=== PATIENT | female | born 1955 | race Caucasian/White ===

== ENCOUNTER 2018-10-15 05:57 | Inpatient (IN) | payer MEDICAID ==
[2018-10-15] MEDS ORDERED: Acetaminophen 500 MG Tab PO ONE (06:15)
[2018-10-15] MEDS ORDERED: Gabapentin 300 MG Cap PO ONE (06:15)
[2018-10-15] MEDS ORDERED: Bupivacaine 0.5%/EPINEPHrine 1:200,000 50 ML MDV ONE (06:42)
[2018-10-15] MEDS ORDERED: cefOXitin 2 GM Vial ONE (07:08)
[2018-10-15] MEDS ORDERED: Dextrose 5%-Lactated Ringers 1,000 ML IV SCH (07:15)
[2018-10-15] MEDS ORDERED: Rocuronium 50 MG/5 ML Vial ONE (07:28)
[2018-10-15] MEDS ORDERED: Dexamethasone 4 MG/ML SDV ONE (07:28)
[2018-10-15] MEDS ORDERED: Glycopyrrolate 0.2 MG/ML 5 ML MDV ONE (07:28)
[2018-10-15] MEDS ORDERED: Neostigmine Methylsulfate 1 MG/ML 5 ML Syringe ONE (07:28)
[2018-10-15] MEDS ORDERED: Ondansetron 4 MG/2 ML SDV ONE (07:28)
[2018-10-15] MEDS ORDERED: Succinylcholine 200 MG/10 ML MDV ONE (07:28)
[2018-10-15] MEDS ORDERED: Propofol 200 MG/20 ML SDV ONE (07:28)
[2018-10-15] MEDS ORDERED: Lidocaine 2% 100 MG/5 ML Syringe IVPUSH SCH (08:00)
[2018-10-15] MEDS ORDERED: Ketamine 50 MG in Sodium Chloride 0.9% 49.5 ML IV SCH (08:00)
[2018-10-15] MEDS ORDERED: cefOXitin 2 GM in Sodium Chloride 0.9% 50 ML IV ONE (08:00)
[2018-10-15] MEDS ORDERED: Ketamine 500 MG/5 ML MDV IV SCH (08:00)
[2018-10-15] MEDS ORDERED: Tranexamic Acid 1,000 MG in Sodium Chloride 0.9% 50 ML IV ONE ×2 (09:30→13:00)
[2018-10-15] MEDS ORDERED: hydrOXYzine HCl 100 MG/2 ML SDV IM ONE (09:52)
[2018-10-15] MEDS ORDERED: HYDROmorphone/Normal Saline 15 MG/30 ML PCA IV PRN (10:34)
[2018-10-15] MEDS ORDERED: Naloxone 0.4 MG/ML SDV IVPUSH PRN (10:34)
[2018-10-15] MEDS ORDERED: Naloxone 0.4 MG/ML SDV IV PRN (10:36)
[2018-10-15] MEDS ORDERED: Labetalol 20 MG/4 ML Syringe IVPUSH PRN (10:49)
[2018-10-15] MEDS ORDERED: hydrOXYzine HCl 100 MG/2 ML SDV IM PRN (10:49)
[2018-10-15] MEDS ORDERED: Metoclopramide 10 MG/2 ML SDV IVPUSH PRN (10:49)
[2018-10-15] MEDS ORDERED: Ondansetron 4 MG/2 ML SDV IVPUSH PRN (10:49)
[2018-10-15] MEDS ORDERED: HYDROmorphone 1 MG/ML Syringe IV PRN (10:49)
[2018-10-15] MEDS ORDERED: diphenhydrAMINE 50 MG/ML SDV IVPUSH PRN (10:49)
[2018-10-15] MEDS ORDERED: HYDROmorphone 0.5 MG/0.5 ML Syringe IVPUSH PRN (10:49)
[2018-10-15] MEDS: Lidocaine 0.4%/D5W 2 GM/500 ML BAG IV SCH (11:27)
[2018-10-15] MEDS: Scopolamine 1.5 MG Transdermal Patch TOP SCH ×2 (12:10→14:03)
[2018-10-15] MEDS ORDERED: Pantoprazole 40 MG Vial IVPUSH SCH (14:00)
[2018-10-15] MEDS: Gabapentin 250 MG/5 ML Solution ML 470 ML Bottle PO SCH ×2 (14:13→20:36)
[2018-10-15] MEDS: cefOXitin 2 GM in Sodium Chloride 0.9% 50 ML IV SCH ×2 (14:14→20:36)
[2018-10-15] MEDS ORDERED: MVI, Adult with Vitamin K 10 ML, Thiamine 200 MG, Chromium/Copper/Mang/Selen/Zn 1 ML in... IV SCH ×4 (16:00)
[2018-10-15] MEDS: URSODIOL 250 MG PO SCH (20:35)
[2018-10-15] MEDS: Heparin Sodium 5,000 Units/ML Vial SUBCUT SCH (20:35)
[2018-10-15] MEDS: Carvedilol 6.25 MG Tab PO SCH (20:36)
[2018-10-15] MEDS: Dextrose 5%-Lactated Ringers 1,000 ML IV SCH (22:38)
[2018-10-16] MEDS: cefOXitin 2 GM in Sodium Chloride 0.9% 50 ML IV SCH ×2 (02:26→07:23)
[2018-10-16] MEDS ORDERED: Iopamidol 612 MG/ML 50 ML SDV PO STA (03:28)
[2018-10-16] MEDS: Dextrose 5%-Lactated Ringers 1,000 ML IV SCH (04:26)
[2018-10-16] MEDS ORDERED: Ondansetron 4 MG Tab.DIS PO PRN (07:21)
[2018-10-16] MEDS: Lidocaine 0.4%/D5W 2 GM/500 ML BAG IV SCH (07:22)
[2018-10-16] MEDS: Heparin Sodium 5,000 Units/ML Vial SUBCUT SCH ×2 (07:23→20:23)
[2018-10-16] MEDS ORDERED: Dextrose 5%-Lactated Ringers 1,000 ML IV SCH (07:30)
[2018-10-16] MEDS ORDERED: Betamethasone Dipropionate/Clotrimazole 0.05-1% Crm 15 GM Tube TOP PRN (07:47)
--- NOTE | 2018-10-16 07:49 | CRLCR ---
Indication: Rosario-en-Y gastric bypass surgery revision Technique: Abdomen modified upper GI 2 views Comparison: None Findings/Impression: Oral contrast is intraluminal, no sign of contrast extravasation. Visualized bowel is normal in caliber. No signs of obstruction. Drainage catheter is in the left upper quadrant. No abnormality evident. Dictated by Nazario Oconnell MD @ Oct 16 2018 7:42AM Signed by Dr. Nazario Oconnell @ Oct 16 2018 7:47AM
[2018-10-16] MEDS: Carvedilol 6.25 MG Tab PO SCH ×2 (08:28→20:23)
[2018-10-16] MEDS: Gabapentin 250 MG/5 ML Solution ML 470 ML Bottle PO SCH ×3 (08:50→20:22)
[2018-10-16] MEDS: Citalopram 20 MG Tab PO SCH (08:51)
[2018-10-16] MEDS: Cetirizine 10 MG Tab PO SCH (08:51)
[2018-10-16] MEDS: Furosemide 20 MG Tab PO SCH (08:51)
[2018-10-16] MEDS: SCOPOLAMINE PATCH CHECK TOP SCH (08:52)
[2018-10-16] MEDS: Potassium Chloride 10 MEQ Cap.ER PO SCH (08:52)
[2018-10-16] MEDS: URSODIOL 250 MG PO SCH ×2 (08:54→20:23)
[2018-10-16] MEDS ORDERED: URSODIOL PO SCH (09:00)
[2018-10-16] MEDS ORDERED: Non-Formulary Medication 1 Each (Metronidazole [Metronidazole 0.75% Cream] 1 APPLIC) TOP SCH (09:00)
--- NOTE | 2018-10-16 09:06 | PN ---
DATE OF SERVICE: 10/16/2018 SUBJECTIVE: Kinjal is alert and orientated. She is sitting up in bed. States her pain is controlled. Vital signs have been stable. She has a Reynolds catheter in, and her output has been 1675, ANNELIESE drain put out 120 mL of a light red drainage. REVIEW OF SYSTEMS: Remainder of review of systems is negative for any pertinent positives and negatives. OBJECTIVE: GENERAL: Kinjal Beatty is a pleasant 63-year-old female. She is alert and orientated. VITAL SIGNS: TPR 97.3, 81, 16. blood pressure 127/70. HEENT: Negative. NECK: Supple. HEART: Regular rate and rhythm. LUNGS: Clear. ABDOMEN: Dressings dry and intact. Abdominal binder is on. ANNELIESE drain intact. Reynolds catheter is draining a clear archana urine. EXTREMITIES: Without peripheral edema. ASSESSMENT: 1. Exploratory laparotomy with lysis of adhesions. a. Revision of the Rosario-en-Y gastric bypass including closure of the gastrogastric fistula. b. Takedown of the gastrostomy. c. Wedge and needle liver biopsy for weight regain, status post Rosario-en-Y gastric bypass surgery, gastrogastric fistula, enlargement of pouch and gastrojejunostomy, status post gastrostomy. 2. History of primary biliary cirrhosis. Date of surgery 10/15/2018. Surgeon, Solis Emerson MD. PLAN: 1. Discontinue Reynolds catheter. 2. Decrease IV D5 LR to 100 mL per hour. 3. Step 3 gastric bypass diet. 4. Discontinue OTOLARYNGOLOGY REP continuous pulse ox. 5. Percocet 5/325 mg one q.6 hours p.r.n. pain. 6. Dressing off may shower. 7. Zofran 4 mg ODT p.r.n. nausea every 4 hours. 8. Good pulmonary toilet. 9. We will evaluate p.r.n. or in a.m. HOME MEDICATIONS: 1. Started betamethasone, clotrimazole 1 applicator topical b.i.d. p.r.n. 2. Zyrtec 10 mg p.o. daily. 3. Citalopram, Celexa 20 mg p.o. daily. 4. Flonase 2 sprays in each nostril daily. 5. Lasix 20 mg daily. 6. Metronidazole 1 applicator topical b.i.d. 7. Potassium chloride 20 mEq p.o. daily. 8. Ramipril (Altace 2.5 mg p.o. daily). 9. Betapace 80 mg p.o. b.i.d. 10.Ursodiol 500 mg p.o. q.p.m. and Ursodiol mg p.o. q.a.m. Caprice Vasquez PA-C /[id number]
[2018-10-16] MEDS: Sotalol 80 MG Tab PO SCH ×2 (09:08→20:23)
[2018-10-16] MEDS: Fluticasone Propionate Nasal Spray 16 GM Bottle NAS SCH (10:45)
[2018-10-16] MEDS: Acetaminophen/oxyCODONE 325-5 MG Tab PO PRN ×2 (10:49→15:20)
[2018-10-16] MEDS ORDERED: Non-Formulary Medication 1 Each (Ursodiol [Ursodiol] 500 MG) PO SCH (17:00)
[2018-10-17] MEDS: Acetaminophen/oxyCODONE 325-5 MG Tab PO PRN ×2 (02:37→09:43)
[2018-10-17] MEDS: Heparin Sodium 5,000 Units/ML Vial SUBCUT SCH (07:38)
[2018-10-17 08:54] VITALS: BP 127/59; PULSE 79
[2018-10-17] MEDS: Fluticasone Propionate Nasal Spray 16 GM Bottle NAS SCH (08:54)
[2018-10-17] MEDS: SCOPOLAMINE PATCH CHECK TOP SCH (08:56)
[2018-10-17] MEDS: Sotalol 80 MG Tab PO SCH (08:57)
[2018-10-17] MEDS: Cetirizine 10 MG Tab PO SCH (08:58)
[2018-10-17] MEDS: Carvedilol 6.25 MG Tab PO SCH (08:58)
[2018-10-17] MEDS: Potassium Chloride 10 MEQ Cap.ER PO SCH (08:58)
[2018-10-17] MEDS: Furosemide 20 MG Tab PO SCH (08:58)
[2018-10-17] MEDS: Citalopram 20 MG Tab PO SCH (08:58)
[2018-10-17] MEDS ORDERED: Cyanocobalamin (Vitamin B12) 1,000 MCG/ML SDV IM ONE (09:00)
[2018-10-17] MEDS: URSODIOL 250 MG PO SCH (09:26)
[2018-10-17] MEDS: Gabapentin 250 MG/5 ML Solution ML 470 ML Bottle PO SCH (09:27)
[2018-10-17] MEDS ORDERED: Meperidine PF 100 MG/ML Syringe IM ONE (09:49)
[2018-10-17] MEDS ORDERED: Magnesium Hydroxide 400 MG/5 ML Susp 30 ML Cup PO ONE (10:00)
[2018-10-17] MEDS ORDERED: hydrOXYzine HCl 100 MG/2 ML SDV IM ONE (10:00)
--- NOTE | 2018-10-17 12:26 | DISCH ---
ADMISSION DIAGNOSES: Morbid obesity, BMI 46; status post Rosario-en-Y gastric bypass surgery; weight regain; vitamin D deficiency; unspecified surgical malabsorption; liver enlargement; cardiomyopathy; sensorineural hearing loss bilaterally; osteoarthritis, left knee; paroxysmal atrial fibrillation; cardiac pacemaker in situ; and anterolisthesis. DISCHARGE DIAGNOSES: 1. Exploratory laparotomy with lysis of adhesions. a. Revision of the Rosario-en-Y gastric bypass surgery including closure of the gastrogastric fistula. b. Takedown of gastrostomy. c. Wedge and needle liver biopsy for enlarged liver. 2. History of biliary cirrhosis. 3. Weight regain, status post Rosario-en-Y gastric bypass surgery. 4. Gastrogastric fistula. 5. Enlargement of pouch and gastrojejunostomy. HISTORY: Kinjal Beatty is a pleasant 63-year-old female with history of Rosario-en-Y and weight regain. After preoperative evaluation and discussion of possible risks and possible complications, she wished to proceed with surgical procedure. HOSPITAL COURSE: Kinjal had her surgery on 10/15/2018. She had no operative complication. On postoperative day #1, her upper GI was normal. Reynolds catheter was discontinued and started on a step-3 gastric bypass diet. HUNTER SKIN DIVER discontinued and started on oral pain medication. On postoperative day #2, vital signs were good. Activity was adequate, and she received dietary instructions. Pain was controlled. She was able to be discharged to home. PHYSICAL EXAMINATION: GENERAL: Kinjal Beatty is a pleasant 63-year-old female. VITAL SIGNS: Height is 5 feet 1 inch. Weight is 245 pounds. BMI is 46. TPR; 99.5, 80, 16, and blood pressure 117/52. HEENT: Negative. NECK: Supple. HEART: Regular rate and rhythm. LUNGS: Clear. ABDOMEN: Stapled incision looks good. 4x4 over ANNELIESE drain site. Abdominal binder is on. EXTREMITIES: Without peripheral edema. DISPOSITION: Discharged to home. CONDITION: Stable and improving. FOLLOWUP: Followup appointment with Caprice Vasquez PA-C, on 10/28/2018, at 10:30 a.m. DISCHARGE MEDICATIONS: Home Medications: 1. Percocet 5/325 mg 1 q.6 hours p.r.n. pain, #28. 2. Milk of magnesia 30 mL, 2 doses were sent home with the patient to take one daily p.r.n. constipation. She is to resume her home medications of, 1. Carvedilol 6.25 mg oral twice daily. 2. Celebrex 200 mg oral daily. 3. Children's aspirin 81 mg oral daily. 4. Tylenol 650 every 4 hours p.r.n. pain. 5. Zyrtec 10 mg oral daily. 6. Celexa 20 mg oral daily. 7. Flonase 2 sprays in each nostril daily. 8. Lasix 20 mg daily. 9. Potassium chloride 20 mEq oral daily. 10.Altace 2.5 mg oral daily. 11.Simvastatin 40 mg oral daily. 12.Betapace 40 mg oral twice daily. 13.Ursodiol mg oral every morning and 500 mg oral in the evening. 14.Metronidazole 0.75% cream p.r.n. twice daily. 15.To resume all recommended vitamins and supplements. DIET: Step-3 gastric bypass diet for 2 weeks. ACTIVITY: No lifting greater than 10 pounds for 6 weeks. Other Activities: Walk at least 6 times daily inside your home. Driving: Do not drive for 1 week and while on pain medication. Shower/bathing: May shower. DISCHARGE INSTRUCTIONS: Notify provider if any fever, increased pain, nausea, or vomiting. Keep site clean and dry. Wear abdominal binder for 6 weeks and then as tolerated. Special Instruction: Use incentive spirometer 10 times every hour while awake.
--- NOTE | 2018-10-18 08:29 | OR ---
DATE OF PROCEDURE: 10/15/2018 PREOPERATIVE DIAGNOSES: 1. Weight regain status post Rosario-en-Y gastric bypass with a gastrogastric fistula and enlargement of gastric pouch and gastrojejunostomy. 2. History of primary biliary cirrhosis. POSTOPERATIVE DIAGNOSES: 1. Weight regain status post Rosario-en-Y gastric bypass with a gastrogastric fistula and enlargement of gastric pouch and gastrojejunostomy. 2. History of primary biliary cirrhosis. 3. Status post gastrostomy. OPERATIVE PROCEDURES: Exploratory laparotomy with lysis of adhesions and, 1. Revision of Rosario-en-Y gastric bypass including closure of gastrogastric fistula (97780). 2. Takedown of gastrostomy (84350). 3. Micah-Cut needle biopsy (43610). 4. Wedge biopsy of left lobe of liver (23521). ANESTHESIA: General. CARPET INSTALLER HELPER: Caprice Vasquez PA-C. INDICATION FOR PROCEDURE: This is a 63-year-old presenting with some weight regain status post Rosario-en-Y gastric bypass. On upper endoscopy, she was noted to have quite enlarged pouch and gastrojejunostomy as well as development of gastrogastric fistula. The plan is to proceed with division of the gastrogastric fistula and reduction of the pouch, gastrojejunostomy size. Because of her primary biliary cirrhosis, we will not be doing anything to increase the malabsorption as that could potentially accelerate her liver disease progression, and we will always plan to get a liver biopsy or biopsies intraoperatively to assess the patient's current histologic liver status. Potential risks of the procedure including bleeding, infection, leaks from GI tract staple lines, as well as the possibility of cardiopulmonary, septic, or hemorrhagic complications leading to were all discussed, and the patient wishes to proceed. DETAILS OF PROCEDURE: The patient was taken to the operating room and placed in a supine position. After general endotracheal anesthesia was induced, a Reynolds catheter was inserted, and the abdomen was prepped and draped. The previous upper midline incision was then reused and carried down through the skin and subcutaneous tissue with full length of the incision, which was basically from the xiphoid to the umbilicus. The left lobe of the liver upon entering the abdomen was quite large, extending down roughly 2[address] to the umbilicus, and the liver was generally quite firm. The patient did not appear to have overt portal hypertension within the gastric and small bowel mesentery. There were still some attachments to her previous gastrostomy, and this was taken down away from the abdominal wall and that opening was then closed off with a GRACIE staple line. Initially, biopsies were obtained from the left lobe of liver. Because of the consistency of the liver, these were quite scant. Given this, using a GRACIE stapler, a wedge biopsy of the left lobe of the liver was accomplished and those specimen sent separately for histologic evaluation. As one dissected down in the area of the gastric pouch, away from the overlying liver and other adhesions, at that point an Sha tube was passed orally per Anesthesia, and across the gastrojejunostomy and the tip then into the Rosario limb. This then allowed dissection along the left side of the stomach. The area of the gastrogastric fistula was identified. This was initially divided and then additional ridge of the stomach was then excised beginning at the level of the gastrojejunostomy upward to the angle of His. The drain was fairly snugly up against the Sha tube. Staple line was also then further imbricated with running seromuscular 2-0 Prolene stitch. At that point, the revision appeared to be satisfactorily completed. The Sha tube was then removed with no major resistance noted, i.e., no overtightening at the gastrojejunostomy elsewhere within the pouch. The abdomen was irrigated with an antibiotic-containing saline solution. The patient was fairly oozy in terms of the tendency to bleed from staple lines and other raw surfaces and was given tranexamic acid 1 g, which will be repeated in 3 hours. This did dry up the field quite nicely. After irrigation with an antibiotic-containing saline solution, the staple lines were reinforced with some fibrin sealant. A Shan-Coleman drain was taken through the left subcostal area and up into the area of the gastric pouch revision. The midline fascia was then approximated with #2 Vicryl stitch, the subcutaneous tissue with some 4-0 Vicryl, and the skin with jud. Dressing was applied. Bilateral transversus abdominis plane blocks had also been placed. The patient was taken to the recovery room in a satisfactory condition. There were no evident complications. Physician unit assistant, Caprice Vasquez, played an essential role in assisting in this case, helping to position the patient, retract structures as needed, as well as suturing and cutting sutures when indicated. Her presence improved patient safety and decreased the operative time. Solis Emerson MD /[id number]
== END 2018-10-17 11:15 | disposition home or self-care (01) | DRG 620 ==
LOC: JP.SDS 05:57 → JP.SDSSCHI 05:57 → EDSTATUS 07:15 → JP.MS 10:10
PROVIDERS: ADMIT Surgery; ATTEND Surgery
PROC: 0DB60ZZ Excision of Stomach, Open Approach (ICD-10-PCS; principal; 2018-10-15)
PROC: 0FB20ZX Excision of Left Lobe Liver, Open Approach, Diagnostic (ICD-10-PCS; 2018-10-15)
PROC: 0FB20ZX Excision of Left Lobe Liver, Open Approach, Diagnostic (ICD-10-PCS; 2018-10-15)
PROC: 0DB60ZZ Excision of Stomach, Open Approach (ICD-10-PCS; 2018-10-15)
PROC: 0DNW0ZZ Release Peritoneum, Open Approach (ICD-10-PCS; 2018-10-15)
DX: E66.01 Morbid (severe) obesity due to excess calories (principal); I42.9 Cardiomyopathy, unspecified; K31.6 Fistula of stomach and duodenum; K91.2 Postsurgical malabsorption, not elsewhere classified; R16.0 Hepatomegaly, not elsewhere classified; K66.0 Peritoneal adhesions (postprocedural) (postinfection); K74.3 Primary biliary cirrhosis; Z68.42 Body mass index [BMI] 45.0-49.9, adult; E55.9 Vitamin D deficiency, unspecified; Z98.84 Bariatric surgery status; M54.16 Radiculopathy, lumbar region; H90.5 Unspecified sensorineural hearing loss; M17.12 Unilateral primary osteoarthritis, left knee; I48.0 Paroxysmal atrial fibrillation; K58.9 Irritable bowel syndrome, unspecified; Z95.810 Presence of automatic (implantable) cardiac defibrillator; Z88.5 Allergy status to narcotic agent; R63.5 Abnormal weight gain; Z98.0 Intestinal bypass and anastomosis status
CPT/HCPCS: 36415; 74240; 80053; 82607; 82728; 82746; 83735; 83880; 84100; 85027; 86850; 86900; 86901; 88305; 88307; 88313; A9270-GY; C9113; J0171; J0330; J0694; J1100; J1170; J1644; J2001; J2175; J2405; J2704; J2710; J2795; J3010; J3410; J3411; J3420; J3490; J7042; J7050; Q9967

== ENCOUNTER 2020-01-05 05:31 | Inpatient (IN) | payer MEDICAID, MEDICARE ==
[2020-01-05] MEDS ORDERED: Acetaminophen 500 MG Tab PO ONE (06:00)
[2020-01-05] MEDS ORDERED: Dextrose 5%-Lactated Ringers 1,000 ML IV SCH (06:00)
[2020-01-05] MEDS ORDERED: Meropenem 500 MG SDV ONE (06:49)
[2020-01-05] MEDS ORDERED: Lidocaine 1% with EPINEPHrine 1:100,000 50 ML MDV ONE (06:50)
[2020-01-05] MEDS ORDERED: Bupivacaine 0.5% 50 ML MDV ONE (06:50)
[2020-01-05] MEDS ORDERED: Ondansetron 4 MG/2 ML SDV ONE (06:56)
[2020-01-05] MEDS ORDERED: Glycopyrrolate 0.2 MG/ML 5 ML MDV ONE (06:56)
[2020-01-05] MEDS ORDERED: Rocuronium 50 MG/5 ML Vial ONE ×3 (06:56→10:41)
[2020-01-05] MEDS ORDERED: Neostigmine Methylsulfate 1 MG/ML 5 ML Syringe ONE (06:56)
[2020-01-05] MEDS ORDERED: Succinylcholine 200 MG/10 ML MDV ONE (06:56)
[2020-01-05] MEDS ORDERED: Propofol 200 MG/20 ML SDV ONE (06:56)
[2020-01-05] MEDS ORDERED: Dexamethasone 4 MG/ML SDV ONE (06:56)
[2020-01-05] MEDS ORDERED: fentaNYL 250 MCG/5 ML SDV ONE ×2 (06:57→07:24)
[2020-01-05] MEDS ORDERED: ceFAZolin 2 GM in Premix Bag 1 BAG IV ONE (07:15)
[2020-01-05] MEDS ORDERED: diphenhydrAMINE 50 MG/ML SDV IVPUSH PRN ×2 (07:33→13:00)
[2020-01-05] MEDS ORDERED: Ondansetron 4 MG/2 ML SDV IVPUSH PRN (07:33)
[2020-01-05] MEDS ORDERED: Naloxone 0.4 MG/ML SDV IVPUSH PRN (07:33)
[2020-01-05] MEDS ORDERED: Ketamine 500 MG/5 ML MDV IV SCH (08:30)
[2020-01-05] MEDS ORDERED: Ketamine 50 MG in Sodium Chloride 0.9% 49.5 ML IV SCH (08:30)
[2020-01-05] MEDS ORDERED: fentaNYL 100 MCG/2 ML SDV ONE (08:37)
[2020-01-05] MEDS ORDERED: Lactated Ringers 1,000 ML ONE (09:04)
[2020-01-05] MEDS ORDERED: hydrOXYzine HCL 100 MG/2 ML SDV IM ONE (10:01)
[2020-01-05] MEDS: HYDROmorphone/Normal Saline 15 MG/30 ML PCA IV PRN (10:02)
[2020-01-05] MEDS ORDERED: fentaNYL 100 MCG/2 ML SDV IVPUSH ONE (10:12)
[2020-01-05] MEDS ORDERED: Acetaminophen 500 MG Tab PO PRN (13:00)
[2020-01-05] MEDS ORDERED: Labetalol 20 MG/4 ML Syringe IVPUSH PRN (13:00)
[2020-01-05] MEDS ORDERED: hydrOXYzine HCL 100 MG/2 ML SDV IM PRN (13:00)
[2020-01-05] MEDS ORDERED: Metoclopramide 10 MG/2 ML SDV IVPUSH PRN (13:00)
[2020-01-05] MEDS: cefOXitin 2 GM in Sodium Chloride 0.9% 50 ML IV SCH ×2 (13:31→19:35)
[2020-01-05] MEDS: Dextrose 5%-Lactated Ringers 1,000 ML IV SCH ×2 (13:31→23:43)
[2020-01-05] MEDS: Pantoprazole 40 MG Vial IVPUSH SCH (15:10)
[2020-01-05] MEDS: Acetaminophen 500 MG Tab PO SCH ×2 (15:10→23:46)
[2020-01-05] MEDS: MVI, Adult with Vitamin K 10 ML, Thiamine 200 MG, Chromium/Copper/Mang/Selen/Zn 1 ML in... IV SCH ×4 (15:13)
[2020-01-05] MEDS: Carvedilol 3.125 MG Tab PO SCH (18:12)
[2020-01-05] MEDS: Sotalol 80 MG Tab PO SCH (20:25)
[2020-01-05] MEDS: Simvastatin 20 MG Tab PO SCH (20:25)
[2020-01-06] MEDS ORDERED: Iopamidol 612 MG/ML 50 ML SDV PO ONE (01:52)
[2020-01-06] MEDS: cefOXitin 2 GM in Sodium Chloride 0.9% 50 ML IV SCH ×4 (02:46→19:47)
[2020-01-06] MEDS: diphenhydrAMINE 25 MG Cap PO PRN ×2 (05:48→12:40)
[2020-01-06] MEDS: Cyclobenzaprine 10 MG Tab PO PRN (05:48)
[2020-01-06] MEDS: Dextrose 5%-Lactated Ringers 1,000 ML IV SCH ×2 (06:00→13:57)
[2020-01-06] MEDS: Carvedilol 3.125 MG Tab PO SCH ×2 (07:45→15:59)
--- NOTE | 2020-01-06 08:59 | CR ---
[facility] HISTORY: Postbariatric surgery FINDINGS: Patient swallowed water-soluble contrast. Upright views of the abdomen show no evidence of extravasation or obstruction. IMPRESSION: Status post bariatric surgery No extravasation or obstruction seen
[2020-01-06] MEDS: Acetaminophen 500 MG Tab PO SCH ×2 (09:03→15:54)
[2020-01-06] MEDS: Celecoxib 200 MG Cap PO SCH (09:11)
[2020-01-06] MEDS: Sotalol 80 MG Tab PO SCH ×2 (09:12→21:49)
[2020-01-06] MEDS: Aspirin 81 MG Tab.EC PO SCH (09:13)
[2020-01-06] MEDS: Cetirizine 10 MG Tab PO SCH (09:13)
[2020-01-06] MEDS: Citalopram 20 MG Tab PO SCH (09:13)
[2020-01-06] MEDS: Potassium Chloride 20 MEQ Tab.ER PO SCH (09:13)
[2020-01-06] MEDS: Furosemide 20 MG Tab PO SCH (09:13)
[2020-01-06] MEDS: HYDROmorphone/Normal Saline 15 MG/30 ML PCA IV PRN (11:04)
--- NOTE | 2020-01-06 11:04 | PN ---
DATE OF SERVICE: 01/06/2020 SUBJECTIVE: Kinjal states her pain has been controlled. She has been up ambulating. Vital signs are stable. Oral intake on step 1 gastric bypass diet is 480. Urine output via Reynolds catheter is 1325. REVIEW OF SYSTEMS: The remainder of the review of systems is negative for any pertinent positives and negatives. OBJECTIVE: GENERAL: Kinjal Beatty is a pleasant 64-year-old female. She is alert and orientated. VITAL SIGNS: TPR at 0608 hours; 97.1, 82, 16, and blood pressure 122/52. HEENT: Negative. NECK: Supple. HEART: Regular rate and rhythm. LUNGS: Clear. ABDOMEN: Dressing is dry and intact. The abdominal binder is on. EXTREMITIES: Without peripheral edema. ASSESSMENT: Exploratory laparotomy with lysis of adhesions. 1. Repair of an incarcerated incisional hernia. 2. Small bowel resection. 3. transverse colon resection. 4. Removal of an intraperitoneal foreign body. 5. Resection of a peritoneal implant on the small bowel. 6. Debridement of the abdominal wall. POSTOPERATIVE DIAGNOSES: 1. Incarcerated incisional hernia with a focal inflammatory mesh densely adherent to the small bowel and transverse colon. 2. Intraperitoneal foreign body. 3. Nodular peritoneal implant on the surface of the small bowel. DATE OF PROCEDURE: 01/05/2020 SURGEON: Solis Emerson MD PLAN: 1. Schedule and have consent signed for delayed primary closure, 01/07/2020, 0715 hours, TAP block IV and local sedation; Solis Emerson MD; n.p.o. after midnight. 2. Decrease IV D5 LR to 100 mL per hour. 3. Discontinue Reynolds catheter. 4. Step 2 gastric bypass diet without cereal. 5. Continue ambulation and use of incentive spirometer. 6. We will evaluate p.r.n. or in the a.m. and then n.p.o. after midnight. Caprice Vasquez PA-C /[id number]
[2020-01-06] MEDS: Pantoprazole 40 MG Vial IVPUSH SCH (15:54)
[2020-01-06] MEDS: Simvastatin 20 MG Tab PO SCH (21:48)
[2020-01-07] MEDS: MVI, Adult with Vitamin K 10 ML, Thiamine 200 MG, Chromium/Copper/Mang/Selen/Zn 1 ML in... IV SCH ×4 (00:48)
[2020-01-07] MEDS: Acetaminophen 500 MG Tab PO SCH ×4 (00:48→23:47)
[2020-01-07] MEDS: cefOXitin 2 GM in Sodium Chloride 0.9% 50 ML IV SCH ×2 (01:00→08:49)
[2020-01-07] MEDS: diphenhydrAMINE 25 MG Cap PO PRN (01:05)
[2020-01-07] MEDS: Cyclobenzaprine 10 MG Tab PO PRN (02:38)
[2020-01-07] MEDS ORDERED: Bupivacaine 0.5% 50 ML MDV ONE (06:33)
[2020-01-07] MEDS ORDERED: Meropenem 500 MG SDV ONE (06:33)
[2020-01-07] MEDS ORDERED: Lidocaine 1% with EPINEPHrine 1:100,000 50 ML MDV ONE (06:33)
[2020-01-07] MEDS ORDERED: Midazolam 1 MG/ML 2 ML SDV ONE (07:02)
[2020-01-07] MEDS ORDERED: fentaNYL 250 MCG/5 ML SDV ONE (07:02)
[2020-01-07] MEDS ORDERED: Propofol 200 MG/20 ML SDV ONE (07:03)
[2020-01-07] MEDS ORDERED: Cyanocobalamin (Vitamin B12) 1,000 MCG/ML SDV IM ONE (09:00)
[2020-01-07] MEDS: Sotalol 80 MG Tab PO SCH ×2 (09:43→22:11)
[2020-01-07] MEDS: Potassium Chloride 20 MEQ Tab.ER PO SCH (09:43)
[2020-01-07] MEDS: Aspirin 81 MG Tab.EC PO SCH (09:43)
[2020-01-07] MEDS: Furosemide 20 MG Tab PO SCH (09:43)
[2020-01-07] MEDS: Celecoxib 200 MG Cap PO SCH (09:43)
[2020-01-07] MEDS: Carvedilol 3.125 MG Tab PO SCH ×2 (09:44→17:11)
[2020-01-07] MEDS: Citalopram 20 MG Tab PO SCH (09:45)
[2020-01-07] MEDS: Cetirizine 10 MG Tab PO SCH (09:45)
[2020-01-07] MEDS: Docusate Sodium 100 MG Cap PO SCH ×2 (10:11→22:10)
[2020-01-07] MEDS: Bisacodyl 5 MG Tab PO SCH ×2 (10:11→22:10)
[2020-01-07] MEDS: Pantoprazole 40 MG Tab.CR PO SCH (10:11)
--- NOTE | 2020-01-07 11:17 | PN ---
DATE OF SERVICE: 01/07/2020 SUBJECTIVE: Kinjal is postoperative day #2. She is n.p.o. for delayed primary closure. She has been up ambulating, afebrile, and pain has been controlled. REVIEW OF SYSTEMS: Remainder of review of systems negative for any pertinent positives and negatives. OBJECTIVE: GENERAL: Kinjal Beatty is a pleasant 64-year-old female. She is alert and orientated. VITAL SIGNS: TPR at 0300, 97,6; 98; respirations 14; blood pressure 104/64; O2 by pulse oximetry is 98% on 1 L of O2 per nasal cannula. HEENT: Negative. NECK: Supple. HEART: Regular rate and rhythm. LUNGS: Clear. ABDOMEN: Dressings dry and intact. Abdominal binder is on. EXTREMITIES: Without peripheral edema. ASSESSMENT: Exploratory laparotomy with lysis of adhesions. 1. Repair of incarcerated incisional hernia. 2. Small bowel resection. 3. Separate transverse colon resection. 4. Removal of intraperitoneal foreign body. 5. Resection of peritoneal implants on the small bowel. 6. Debridement of abdominal wall. POSTOPERATIVE DIAGNOSES: 1. Incarcerated incisional hernia with focal inflammatory mesh densely adherent to small bowel and transverse colon. 2. Intraperitoneal foreign body. 3. Nodular peritoneal implants on the surface of the small bowel. Date of procedure: 01/05/2020. Surgeon: Solis Emerson MD. PLAN: 1. Orders to be written after delayed primary closure. 2. We will evaluate p.r.n. or in a.m. Caprice Vasquez PA-C /[id number]
--- NOTE | 2020-01-07 13:48 | OR ---
DATE OF PROCEDURE: 01/07/2020 SURGEON: Solis Emerson MD PREOPERATIVE DIAGNOSIS: Open abdominal incision. POSTOPERATIVE DIAGNOSIS: Open abdominal incision. OPERATIVE PROCEDURE: Delayed primary closure of open abdominal incision. ANESTHESIA: Local plus IV sedation. INDICATIONS FOR PROCEDURE: The patient is status post a comprehensive small and large bowel resection and the skin and subcutaneous tissue were felt to be at high risk for wound infection if primary closure was undertaken. Given this, the wound was packed open for a planned delayed primary closure at this time. Potential risks of the procedure including bleeding and infection were reviewed, and the patient wishes to proceed. DETAILS OF PROCEDURE: The patient was taken to the operating room and placed in a supine position, sitting somewhat upright to limit aspiration risk. The abdominal dressing was taken down. The wound was found to be clean. The wound was then prepped and draped, anesthetized with 1% lidocaine and mixed with Marcaine and irrigated with meropenem- containing saline solution. With ultrasound guidance, bilateral transversus abdominis plane blocks were placed. The incision was then closed with 3-0 and 4-0 Vicryl stitch deep and jud for the skin. Dressing was applied. The patient was taken to the recovery room in satisfactory condition. Solis Emerson MD /[id number]
--- NOTE | 2020-01-07 14:12 | PN ---
DATE OF SERVICE: 01/07/2020 The patient has been afebrile with stable vital signs. Complaining of some itching. Restarted on Zyrtec. Otherwise, she underwent a clinical closure of the wound today without difficulty and will begin a step-3 diet today. We will leave her on the IV pain medicine for today, switch over to oral tomorrow. Otherwise maximize activity and work with pulmonary toilet. Solis Emerson MD /[id number]
[2020-01-07] MEDS: Dextrose 5%-Lactated Ringers 1,000 ML IV SCH (14:27)
[2020-01-07] MEDS: HYDROmorphone/Normal Saline 15 MG/30 ML PCA IV PRN (15:48)
[2020-01-07] MEDS ORDERED: MVI, Adult with Vitamin K 10 ML, Thiamine 200 MG, Chromium/Copper/Mang/Selen/Zn 1 ML in... IV SCH ×4 (16:00)
[2020-01-07] MEDS: Simvastatin 20 MG Tab PO SCH (22:13)
[2020-01-08] MEDS: Dextrose 5%-Lactated Ringers 1,000 ML IV SCH (01:18)
[2020-01-08] MEDS ORDERED: oxyCODONE 5 MG Tab PO PRN (07:11)
[2020-01-08] MEDS: Pantoprazole 40 MG Tab.CR PO SCH (07:11)
[2020-01-08] MEDS: Acetaminophen 500 MG Tab PO SCH (07:14)
[2020-01-08] MEDS: Carvedilol 3.125 MG Tab PO SCH (07:14)
[2020-01-08 07:16] VITALS: BP 148/71; PULSE 80
[2020-01-08] MEDS: Furosemide 20 MG Tab PO SCH (08:01)
[2020-01-08] MEDS: Bisacodyl 5 MG Tab PO SCH (08:01)
[2020-01-08] MEDS: Sotalol 80 MG Tab PO SCH (08:01)
[2020-01-08] MEDS: Cetirizine 10 MG Tab PO SCH (08:01)
[2020-01-08] MEDS: Celecoxib 200 MG Cap PO SCH (08:02)
[2020-01-08] MEDS: Aspirin 81 MG Tab.EC PO SCH (08:02)
[2020-01-08] MEDS: Potassium Chloride 20 MEQ Tab.ER PO SCH (08:02)
[2020-01-08] MEDS: Citalopram 20 MG Tab PO SCH (08:02)
[2020-01-08] MEDS: Docusate Sodium 100 MG Cap PO SCH (08:02)
[2020-01-08] MEDS ORDERED: Magnesium Hydroxide 400 MG/5 ML Susp 30 ML Cup PO ONE (09:00)
--- NOTE | 2020-01-08 14:36 | DISCH ---
ADMISSION DIAGNOSES: Incisional hernia, status post Rosario-en-Y gastric bypass surgery, unspecified surgical malabsorption, B12 deficiency, vitamin D deficiency, nonischemic cardiomyopathy, sensorineural hearing loss, osteoarthritis left knee, paroxysmal atrial fibrillation, cardiac pacemaker in situ, status post internal cardiac defibrillator. DISCHARGE DIAGNOSES: Exploratory laparotomy with lysis of adhesions. 1. Repair of incarcerated incisional hernia. 2. Small bowel resection. 3. Separate transverse colon resection. 4. Removal of intraperitoneal foreign body. 5. Resection of peritoneal implants on the small bowel. 6. Debridement of abdominal wall. POSTOPERATIVE DIAGNOSES: 1. Incarcerated incisional hernia with focal inflammatory mesh densely adherent to small bowel and transverse colon. 2. Intraperitoneal foreign body. 3. Nodular peritoneal implants on the surface of the small bowel. 4. Date of procedure: 01/05/2020. Surgeon: Solis Emerson MD. 5. Delayed primary closure for open abdominal incision on 01/07/2020. HISTORY: Kinjal Beatty is a pleasant 64-year-old female who presented with a large ventral incisional hernia. After preoperative evaluation and discussion of possible risks and possible complications, she wished to proceed with surgical procedure. HOSPITAL COURSE: Kinjal had her surgery on 01/05/2020. She had no operative complications. On 01/07/2020, she had delayed primary closure. Pain was controlled. Vital signs were good, afebrile. Oral intake adequate. Output adequate. Activity good, and she was able to be discharged to home on 01/08/2020. PHYSICAL EXAMINATION: GENERAL: Kinjal is a pleasant 64-year-old female. VITAL SIGNS: Height is 5 feet 1 inch, weight is 253 pounds. TPR is 96.7, 80, 18, blood pressure 148/71. HEENT: Negative. NECK: Supple. HEART: Regular rate and rhythm. LUNGS: Clear. ABDOMEN: Aquacel dressing is on. Dressing is dry and intact. Abdominal binder is on. EXTREMITIES: Without peripheral edema. DISPOSITION: Discharged to home. CONDITION: Stable and improving. FOLLOWUP: Appointment with Caprice Vasquez PA-C, at on 01/19/2020 at 11 a.m. HOME MEDICATIONS: 1. Celebrex 200 mg p.o. daily b.i.d., #28. 2. Colace 100 mg b.i.d., #60. 3. Dulcolax 10 mg oral tablets twice daily until bowel movement, #60. 4. Oxycodone 5 mg every 4 hours p.r.n. pain, #42. 5. Tylenol Extra Strength 1000 mg oral q.8 hours p.r.n. pain. 6. Zofran ODT 4 mg every 4 hours p.r.n. nausea, #30. 7. To resume home medications: a. Aspirin 81 mg oral daily. b. Vitamin C 250 mg oral daily. c. Calcium carbonate 1 twice daily. d. Zyrtec 10 mg oral daily. e. Vitamin D3 1000 International Units oral daily. f. Celexa 20 mg oral daily. g. Vitamin B12 1000 mcg sublingual daily. h. Flonase nasal spray 2 sprays in each nostril once a day. i. Lasix 20 mg oral daily. j. Milk of mag 2 doses were sent home with the patient. k. Multivitamin 1 twice daily. l. Potassium chloride 20 mEq daily. m. Altace 2.5 mg oral daily. n. Zocor 40 mg at bedtime. o. 40 mg twice daily. p. Vitamin B complex 1 daily. q. Carvedilol 6.25 mg oral twice daily. r. Metronidazole 0.75% cream 1 applicator twice daily to affected area. s. Altace 2.5 mg daily. t. Ursodiol 625 mg every morning and 500 mg every evening. DIET: Step 3 gastric bypass diet until appointment. Drink 8 to 10 glasses of water a day. ACTIVITY: No lifting greater than 10 pounds for 6 weeks. OTHER ACTIVITY: Walk 6 times daily inside your home. Driving: Do not drive for 1 week and while on pain medication. Shower/bathing: May shower. DISCHARGE INSTRUCTIONS: Notify provider if any fever, increased pain, nausea, or vomiting. Wound incision care: Keep site clean and dry. Wear abdominal binder for 6 weeks and then as tolerated. SPECIAL INSTRUCTION: 1. Use incentive spirometer 10 times every hour while awake. 2. Replace Aquacel dressing on 01/10/2020, and leave it on for 3 days and take it off on 01/13/2020.
--- NOTE | 2020-01-14 07:19 | OR ---
DATE OF PROCEDURE: 01/05/2020 SURGEON: Solis Emerson MD PREOPERATIVE DIAGNOSIS: Incisional hernia. POSTOPERATIVE DIAGNOSES: 1. Incarcerated incisional hernia with focal inflammatory mass involving abdominal wall with densely adherent small bowel and transverse colon. 2. Intraperitoneal foreign body. 3. Nodular peritoneal implant over the small bowel. 4. Focal necrotizing inflammation of the abdominal wall. OPERATIVE PROCEDURES: Exploratory laparotomy with lysis of extensive adhesions and: 1. Repair of incarcerated incisional hernia (15008). 2. Small bowel resection (29350). 3. Segment of transverse colon resection (20799). 4. Removal of intraperitoneal foreign body (78058). 5. Resection of peritoneal implant on surface of small bowel (1 cm) (48826). 6. Debridement of abdominal wall (48271). ANESTHESIA: General. ELECTRIC DRILL OPERATOR: Caprice Vasquez PA-C INDICATIONS FOR PROCEDURE: A 64-year-old presenting with increasingly symptomatic recurrent incisional hernia. The plan is to proceed with repair of this with mesh technique. Potential risks including bleeding, infection, injury to the underlying viscera, problems with the hernia recurring or mesh becoming infected, possible need for bowel resection and there is more possibility of cardiopulmonary, septic, or hemorrhagic complications leading to were all discussed, and the patient wishes to proceed. DETAILS OF PROCEDURE: The patient was taken to the operating room, and after general endotracheal anesthesia was induced, a Reynolds catheter was inserted, and the abdomen prepped and draped. Previous midline incision was then made and carried down through the skin, subcutaneous tissue. In the central area of the previous midline incision as one went deeper into the fascial layer, there was noted to be some necrosis of the abdominal wall. This was associated with an extremely florid inflammatory response in that area of incision. The peritoneal cavity was opened more freely superiorly and inferiorly to that location and the patient was noted to have a densely adherent segment of small bowel and transverse colon to that inflammatory mass. These areas needed to be resected at this point and these were done with combination of GI staplers and cautery dissection. The small bowel was divided proximally and distally, area of involvement, as was the transverse colon, and the underlying mesentery divided with 3 GRACIE jud as well. During the course of the dissection, the patient was noted to have a suture-like foreign body within the area underlying the inflammatory response. This measured around 3 cm in length. There was also separate nodular implant measuring around 1 cm in the surface of the small bowel. The latter was then excised at this point with transverse firing of the GRACIE stapler without significant luminal narrowing of the small bowel at that level. At this point, the small and large bowel anastomosis were both accomplished with 2 internal firings of the Endo-GRACIE 60 mm stapler, common opening was then closed transversely with the same stapler, and the angles anastomosed and mesenteric defect approximated with some 3-0 Vicryl stitch. Both of these anastomoses were also then reinforced with some fibrin sealant. At this point, some additional abdominal wall was then debrided which was involving some of the necrotizing inflammation and that sent separately. This involved subcutaneous tissue musculature and fascial layers of the abdominal wall. At this point, it was fairly obvious that we should not be putting mesh into this wound. The abdomen was irrigated with meropenem containing saline solution. The midline fascia was then approximated with a #2 Vicryl stitch. Skin and subcutaneous tissue were felt to be high risk for wound infection if primary closure was undertaken, and these were therefore packed open with iodoform gauze. Prior to closure, bilateral transversus abdominis plane blocks were then placed and the patient taken to the recovery room in satisfactory condition. Physician public aid eligibility assistant, Caprice Vasquez, played an essential role in assisting in this case, helping to position the patient, retract structures as needed, as well as suturing and cutting sutures when indicated. Her presence improved patient safety and decreased the operative time. Solis Emerson MD /[id number]
== END 2020-01-08 09:15 | disposition home or self-care (01) | DRG 330 ==
LOC: JP.SDS 05:31 → JP.SDSSCHI 05:31 → EDSTATUS 09:15 → JP.MS 09:45
PROVIDERS: ADMIT Surgery; ATTEND Surgery
PROC: 0DB80ZZ Excision of Small Intestine, Open Approach (ICD-10-PCS; principal; 2020-01-05)
PROC: 0DBL0ZZ Excision of Transverse Colon, Open Approach (ICD-10-PCS; 2020-01-05)
PROC: 0JD80ZZ Extraction of Abdomen Subcutaneous Tissue and Fascia, Open Approach (ICD-10-PCS; 2020-01-05)
PROC: 0DBW0ZZ Excision of Peritoneum, Open Approach (ICD-10-PCS; 2020-01-05)
PROC: 0WQFXZZ Repair Abdominal Wall, External Approach (ICD-10-PCS; 2020-01-07)
DX: K43.0 Incisional hernia with obstruction, without gangrene (principal); K91.2 Postsurgical malabsorption, not elsewhere classified; I42.9 Cardiomyopathy, unspecified; Z68.42 Body mass index [BMI] 45.0-49.9, adult; I42.8 Other cardiomyopathies; K55.9 Vascular disorder of intestine, unspecified; K66.0 Peritoneal adhesions (postprocedural) (postinfection); E55.9 Vitamin D deficiency, unspecified; E53.8 Deficiency of other specified B group vitamins; M17.12 Unilateral primary osteoarthritis, left knee; I48.0 Paroxysmal atrial fibrillation; E66.01 Morbid (severe) obesity due to excess calories; Z90.49 Acquired absence of other specified parts of digestive tract; Z95.0 Presence of cardiac pacemaker; Z98.84 Bariatric surgery status; Z90.710 Acquired absence of both cervix and uterus; Z79.82 Long term (current) use of aspirin; Z79.899 Other long term (current) drug therapy; Z88.5 Allergy status to narcotic agent
CPT/HCPCS: 36415; 74240; 74240-26; 80053; 83735; 83880; 84100; 85025; 88300; 88305; 88307; 94762; A9270-GY; C9113; J0171; J0330; J0690; J0694; J1100; J1170; J2020; J2185; J2250; J2405; J2704; J2710; J2795; J3010; J3410; J3411; J3420; J3490; J7120; J7121; Q9967